=== PATIENT | female | born 1995 | race Caucasian/White ===

== ENCOUNTER → 2017-06-25 | Outpatient (REF) | payer BC ==
[2017-06-25 12:05] LABS: BASO # 0.1 K/mm3 (0.0-0.2); BASO % 0.8 % (0.0-1.0); EOS # 0.2 K/mm3 (0.0-0.50); EOS % 1.9 % (0.0-3.0); LARGE UNSTAINED CELL # 0.2 K/mm3 (0.0-0.4); LARGE UNSTAINED CELL % 2.1 % (0.0-4.0); LYMPH # 2.4 K/mm3 (1.5-6.5); LYMPH % 28.9 % (24.0-44.0); MEAN CORPUSCULAR HEMOGLOBIN 30.5 pg (27.0-33.0); MEAN CORPUSCULAR VOLUME 92.7 fl (80.0-96.0); MONO # 0.6 K/mm3 (0.0-0.8); MONO % 7.4 % (0.0-5.0); NEUTROPHILS # 4.5 K/mm3 (1.8-7.7); NEUTROPHILS % 58.9 % (36.0-66.0); PLATELET COUNT, AUTOMATED 352 k/mm3 (150-450); WHITE BLOOD COUNT 7.6 K/mm3 (4.0-10.0)
[2017-06-25 12:26] LABS: ALBUMIN 3.7 GM/DL (3.2-5.2); ALBUMIN/GLOBULIN RATIO 1.19 (1.00-1.93); ALKALINE PHOSPHATASE 60 U/L (45-117); ALT/SGPT 17 U/L (12-78); ANION GAP 10 MEQ/L (8-16); AST/SGOT 13 U/L (15-37); BILIRUBIN,TOTAL 0.4 MG/DL (0.2-1.0); BLOOD UREA NITROGEN 8 MG/DL (7-18); CALCIUM LEVEL 8.6 MG/DL (8.5-10.1); CARBON DIOXIDE LEVEL 27 MEQ/L (21-32); CHLORIDE LEVEL 105 MEQ/L (98-107); CREATININE FOR GFR 0.72 MG/DL (0.55-1.02); FREE T4 1.07 NG/DL (0.76-1.46); GLOMERULAR FILTRATION RATE > 60.0 (>60); GLUCOSE, FASTING 90 MG/DL (70-105); POTASSIUM SERUM 3.9 MEQ/L (3.5-5.1); SODIUM LEVEL 142 MEQ/L (136-145); TOTAL PROTEIN 6.8 GM/DL (6.4-8.2)
== END ==
LOC: M SFHCPLAZ 09:00
PROVIDERS: ATTEND Nurse Practitioner Family
DX: F32.1 Major depressive disorder, single episode, moderate (principal)

== ENCOUNTER → 2018-03-15 | Outpatient (REF) | payer BC, OTHER, MEDICAID | LOC: M LAB REF 18:27 | DX: Z12.4 Encounter for screening for malignant neoplasm of cervix (principal) | CPT/HCPCS: G0123 ==

== ENCOUNTER → 2019-07-18 | Outpatient (CLI) | payer OTHER, MEDICAID ==
[2019-07-18 13:50] LABS: ALBUMIN 3.8 GM/DL (3.2-5.2); ALT/SGPT 20 U/L (12-78); BILIRUBIN,TOTAL 0.3 MG/DL (0.2-1.0); BLOOD UREA NITROGEN 10 MG/DL (7-18); CALCIUM LEVEL 8.9 MG/DL (8.5-10.1); CARBON DIOXIDE LEVEL 27 MEQ/L (21-32); CHLORIDE LEVEL 109 MEQ/L (98-107); CHOLESTEROL LEVEL 164 MG/DL (<200); CHOLESTEROL RISK RATIO 3.565 (<5); CREATININE FOR GFR 0.73 MG/DL (0.55-1.30); GLOMERULAR FILTRATION RATE > 60.0 (>60); GLUCOSE, FASTING 88 MG/DL (70-100); HDL CHOLESTEROL 46 MG/DL (>40); LDL CHOLESTEROL 103 MG/DL (<100); NON-HDL-C 118 MG/DL; POTASSIUM SERUM 4.2 MEQ/L (3.5-5.1); SODIUM LEVEL 144 MEQ/L (136-145); TOTAL PROTEIN 7.2 GM/DL (6.4-8.2); TRIGLYCERIDES LEVEL 77 MG/DL (<150)
== END ==
LOC: M SMT 08:38
PROVIDERS: ATTEND Nurse Practitioner Family
DX: Z00.00 Encounter for general adult medical examination without abnormal findings (principal); Z13.220 Encounter for screening for lipoid disorders; E66.9 Obesity, unspecified; Z68.37 Body mass index [BMI] 37.0-37.9, adult; E03.9 Hypothyroidism, unspecified

== ENCOUNTER → 2020-04-02 | Outpatient (REF) | payer OTHER, MEDICAID | LOC: M SFHCWAGY 17:41 | PROVIDERS: ATTEND Advanced Practice Midwife | DX: Z12.4 Encounter for screening for malignant neoplasm of cervix (principal) ==

== ENCOUNTER → 2022-01-26 | Outpatient (CLI) | payer BC ==
[2022-01-26 15:47] LABS: BASO % 0.3 % (0.0-1.0); EOS # 0.2 10^3/uL (0.0-0.5); EOS % 2.3 % (0.0-3.0); HEMATOCRIT 40.7 % (36.0-47.0); HEMOGLOBIN 13.4 g/dl (12.0-15.5); LYMPH # 1.9 10^3/uL (1.5-5.0); LYMPH % 24.2 % (24.0-44.0); MEAN CORPUSCULAR HEMOGLOBIN 29.1 pg (27.0-33.0); MEAN CORPUSCULAR HGB CONC 32.9 g/dl (32.0-36.5); MEAN CORPUSCULAR VOLUME 88.5 fl (80.0-96.0); MONO # 0.9 10^3/uL (0.0-0.8); MONO % 10.8 % (2.0-8.0); NEUTROPHILS % 62.1 % (36.0-66.0); PLATELET COUNT, AUTOMATED 332 10^3/uL (150-450)
[2022-01-26 16:48] LABS: GC DNA AMPLIFICATION NEGATIVE (NEGATIVE)
[2022-01-26 17:50] LABS: HIV 1&2 SCREEN CENTAUR NEGATIVE (NEGATIVE)
== END ==
LOC: M PLALAB 14:09
PROVIDERS: ATTEND Obstetrics & Gynecology
DX: Z34.90 Encounter for supervision of normal pregnancy, unspecified, unspecified trimester (principal)

== ENCOUNTER → 2022-02-08 | Outpatient (CLI) | payer BC | LOC: M PLALAB 09:06 | PROVIDERS: ATTEND Obstetrics & Gynecology | DX: Z34.81 Encounter for supervision of other normal pregnancy, first trimester (principal) ==

== ENCOUNTER → 2022-04-14 | Outpatient (CLI) | payer BC | LOC: M WHC 07:04 | PROVIDERS: ATTEND Obstetrics & Gynecology | DX: Z34.01 Encounter for supervision of normal first pregnancy, first trimester (principal) ==

== ENCOUNTER → 2022-05-03 | Outpatient (CLI) | payer BC, MEDICAID | LOC: M WHC 13:08 | PROVIDERS: ATTEND Obstetrics & Gynecology | DX: O44.42 Low lying placenta NOS or without hemorrhage, second trimester (principal); Z3A.23 23 weeks gestation of pregnancy ==

== ENCOUNTER → 2022-06-08 | Outpatient (CLI) | payer BC, MEDICAID ==
[2022-06-08 10:48] LABS: HEMATOCRIT 35.9 % (36.0-47.0); HEMOGLOBIN 11.7 g/dl (12.0-15.5); MEAN CORPUSCULAR HEMOGLOBIN 29.1 pg (27.0-33.0); MEAN CORPUSCULAR HGB CONC 32.6 g/dl (32.0-36.5); MEAN CORPUSCULAR VOLUME 89.3 fl (80.0-96.0); PLATELET COUNT, AUTOMATED 297 10^3/uL (150-450); RED BLOOD COUNT 4.02 10^6/uL (4.00-5.40); WHITE BLOOD COUNT 10.8 10^3/uL (4.0-10.0)
[2022-06-08 12:35] LABS: GC DNA AMPLIFICATION NEGATIVE (NEGATIVE)
== END ==
LOC: M PLALAB 07:18
PROVIDERS: ATTEND Specialist
DX: Z34.82 Encounter for supervision of other normal pregnancy, second trimester (principal)

== ENCOUNTER → 2022-07-25 | Outpatient (REF) | payer BC, MEDICAID ==
[~2022-07-25] MED LIST: ACET-907 PO; PRENTAB9 PO; TUMS500C PO
== END ==
LOC: M SFHCWAGY 09:56
PROVIDERS: ATTEND Advanced Practice Midwife
DX: Z34.03 Encounter for supervision of normal first pregnancy, third trimester (principal)

== ENCOUNTER 2022-08-01 15:32 | Outpatient (CLI) | payer OTHER, MEDICAID ==
[~2022-08-01] VITALS: Ht 154.9 cm; Wt 104.4 kg
[2022-08-01 15:58] VITALS: BP 128/82
[2022-08-01] MEDS ORDERED: ACET-907 PO (16:10)
[2022-08-01] MEDS ORDERED: TUMS500C PO (16:10)
[2022-08-01] MEDS ORDERED: PRENTAB9 PO (16:10)
[2022-08-01 16:16] VITALS: BP 118/71
[2022-08-01 17:01] LABS: HEMATOCRIT 32.4 % (36.0-47.0); HEMOGLOBIN 10.5 g/dl (12.0-15.5); MEAN CORPUSCULAR HEMOGLOBIN 27.9 pg (27.0-33.0); MEAN CORPUSCULAR HGB CONC 32.4 g/dl (32.0-36.5); MEAN CORPUSCULAR VOLUME 85.9 fl (80.0-96.0); PLATELET COUNT, AUTOMATED 250 10^3/uL (150-450); RED BLOOD COUNT 3.77 10^6/uL (4.00-5.40); WHITE BLOOD COUNT 9.1 10^3/uL (4.0-10.0)
[2022-08-01 17:29] LABS: CREATININE,RANDOM URINE 20.7 MG/DL
[2022-08-01 17:34] LABS: ALT/SGPT 16 U/L (12-78); BILIRUBIN,TOTAL 0.2 MG/DL (0.2-1.0); CREATININE FOR GFR 0.54 MG/DL (0.55-1.30); GLOMERULAR FILTRATION RATE > 60.0 (>60); LDH LACTATE DEHYDROGENASE 166 U/L (84-246)
[2022-08-01 18:01] VITALS: BP 159/94
== END 2022-08-01 18:20 | disposition home or self-care (01) ==
LOC: M LDO 15:32
PROVIDERS: ATTEND Specialist
DX: O16.3 Unspecified maternal hypertension, third trimester (principal); Z3A.36 36 weeks gestation of pregnancy
CPT/HCPCS: 36415; 59025; 82247; 82565; 82570; 83615; 84156; 84450; 84460; 84550; 85027; G0463

== ENCOUNTER → 2022-08-04 | Outpatient (CLI) | payer OTHER, MEDICAID ==
[~2022-08-04] MED LIST changes: +ALBU2.5V10 INH
== END ==
LOC: M WHC 12:01
PROVIDERS: ATTEND Advanced Practice Midwife
DX: O26.849 Uterine size-date discrepancy, unspecified trimester (principal)

== ENCOUNTER 2022-08-05 19:50 | Inpatient (IN) | payer OTHER, MEDICAID ==
[2022-08-05] VITALS (7 sets, daily range): BP systolic 124–167; BP diastolic 71–103
[~2022-08-05] VITALS: Ht 154.9 cm; Wt 104.4 kg
[~2022-08-05 19:50] MED LIST changes: -ALBU2.5V10 INH
[2022-08-05 20:57] LABS: HEMATOCRIT 33.7 % (36.0-47.0); HEMOGLOBIN 11.2 g/dl (12.0-15.5); MEAN CORPUSCULAR HEMOGLOBIN 27.7 pg (27.0-33.0); MEAN CORPUSCULAR HGB CONC 33.2 g/dl (32.0-36.5); MEAN CORPUSCULAR VOLUME 83.4 fl (80.0-96.0); PLATELET COUNT, AUTOMATED 280 10^3/uL (150-450); RED BLOOD COUNT 4.04 10^6/uL (4.00-5.40); WHITE BLOOD COUNT 8.8 10^3/uL (4.0-10.0)
[2022-08-05] MEDS ORDERED: NIFEdipine 10 MG CAP As Ordered ONE (21:14)
[2022-08-05] MEDS ORDERED: NIFEdipine 10 MG CAP PO ONE ×2 (22:00→23:00)
[2022-08-05] MEDS: miSOPROStol 50MCG 1/2 TABLET SL SCH (23:04)
[2022-08-06] VITALS (29 sets, daily range): BP systolic 118–190; BP diastolic 66–117
[2022-08-06] MEDS ORDERED: ACETAMINOPHEN 500 MG TAB PO PRN (01:30)
[2022-08-06] MEDS: miSOPROStol 50MCG 1/2 TABLET SL SCH ×5 (03:00→16:35)
[2022-08-06] MEDS ORDERED: ALBU2.5V10 INH (09:57)
[2022-08-06] MEDS ORDERED: OXYTOCIN DRIP 30 UNITS in IV 1 EA IV SCH ×2 (17:30→22:30)
[2022-08-06] MEDS ORDERED: LR 1,000 ML IV SCH ×3 (17:30→22:45)
[2022-08-06] MEDS ORDERED: NIFEdipine 10 MG CAP PO ONE ×2 (17:40→20:00)
[2022-08-06] MEDS ORDERED: ceFAZolin 2 GM/D5W 50 ML IV BAG (J0690 PER 500MG) As Ordered ONE (20:58)
[2022-08-06] MEDS ORDERED: BICITRA 30ML SOLN UDC As Ordered ONE (20:58)
[2022-08-06] MEDS ORDERED: BUPIVACAINE/DEXTROSE 0.75% 2ML AMP As Ordered ONE (21:11)
[2022-08-06] MEDS ORDERED: MORPHINE PRES-FREE INJ 10 MG/10 ML VIAL As Ordered ONE (21:11)
[2022-08-06] MEDS ORDERED: OXYTOCIN 30 UNITS IN 0.9% NaCl 500ML IV BAG (J2590) As Ordered ONE ×2 (21:13→23:10)
[2022-08-06 21:22] LABS: HEMATOCRIT 34.6 % (36.0-47.0); HEMOGLOBIN 11.6 g/dl (12.0-15.5); MEAN CORPUSCULAR HGB CONC 33.5 g/dl (32.0-36.5); MEAN CORPUSCULAR VOLUME 83.6 fl (80.0-96.0); PLATELET COUNT, AUTOMATED 294 10^3/uL (150-450); RED BLOOD COUNT 4.14 10^6/uL (4.00-5.40); WHITE BLOOD COUNT 12.3 10^3/uL (4.0-10.0)
[2022-08-06] MEDS ORDERED: ceFAZolin SOD 2 GM in IV 1 EA IV ONE (22:00)
[2022-08-06] MEDS ORDERED: BICITRA 30ML SOLN UDC PO ONE (22:00)
[2022-08-06] MEDS ORDERED: PHENYLephrine 500MCG 5ML (100MCG/ML) SYRINGE As Ordered ONE (22:15)
[2022-08-06] MEDS ORDERED: KETOROLAC 60MG 2ML VIAL As Ordered ONE (22:15)
[2022-08-06] MEDS ORDERED: PERCOCET 5MG/325MG TAB PO PRN ×2 (22:30)
[2022-08-06] MEDS ORDERED: RHOGAM 300 MCG (1500 IU) INJ (J2790) IM SCH (22:30)
[2022-08-06] MEDS ORDERED: MAG Sulf (L&D) 4 GM/100 ML 4 GM in IV 1 EA IV ONE (22:35)
[2022-08-06] MEDS ORDERED: ONDANSETRON 4MG 2ML VIAL As Ordered ONE (22:38)
[2022-08-06] MEDS: ONDANSETRON 4MG 2ML VIAL IV PRN (22:39)
[2022-08-06] MEDS ORDERED: **NOTE PATIENT COMMENT** MISC XX SCH (22:45)
[2022-08-06] MEDS ORDERED: ONDANSETRON 4MG 2ML VIAL IV PRN (22:45)
[2022-08-06] MEDS ORDERED: fentaNYL 100 MCG/2 ML INJECTION IV PRN (22:45)
[2022-08-06] MEDS ORDERED: diphenhydrAMINE 50MG/ML VIAL (J1200) IV PRN (22:45)
[2022-08-06] MEDS ORDERED: NALOXONE INJ 0.4MG/1ML VIAL (J2310 PER 1MG) IV PRN ×2 (22:45)
[2022-08-06] MEDS ORDERED: MORPHINE 2 MG/ML 1ML VIAL IV PRN (22:45)
[2022-08-06] MEDS ORDERED: MAG Sulf (OBGYN) 20GM/500ML 20,000 MG in IV 1 EA IV SCH (23:00)
[2022-08-06] MEDS ORDERED: METOCLOPRAMIDE INJ 10MG/2ML VIAL (J2765 PER 1) As Ordered ONE (23:31)
[2022-08-06] MEDS: METOCLOPRAMIDE INJ 10MG/2ML VIAL (J2765 PER 1) IV PRN (23:32)
[2022-08-06] MEDS ORDERED: MAGNESIUM SULFATE 4% INJ 20GM/500ML (40MG/ML) As Ordered ONE (23:39)
[2022-08-07] VITALS (14 sets, daily range): BP systolic 104–132; BP diastolic 62–91
[2022-08-07] MEDS: KETOROLAC 30 MG/ML 1ML VIAL IV SCH ×3 (04:24→17:19)
[2022-08-07 06:23] LABS: HEMOGLOBIN 10.1 g/dl (12.0-15.5); MEAN CORPUSCULAR HEMOGLOBIN 27.7 pg (27.0-33.0); MEAN CORPUSCULAR HGB CONC 32.6 g/dl (32.0-36.5); MEAN CORPUSCULAR VOLUME 85.2 fl (80.0-96.0); PLATELET COUNT, AUTOMATED 258 10^3/uL (150-450); RED BLOOD COUNT 3.64 10^6/uL (4.00-5.40); WHITE BLOOD COUNT 14.9 10^3/uL (4.0-10.0)
[2022-08-07] MEDS: SLF 3 ML SYR IV SCH ×2 (08:00)
[2022-08-07] MEDS: METOCLOPRAMIDE INJ 10MG/2ML VIAL (J2765 PER 1) IV PRN (08:24)
[2022-08-07] MEDS: ONDANSETRON 4MG 2ML VIAL IV PRN (08:24)
[2022-08-07] MEDS: PRENATAL VITAMINS CHEWABLE TABLET PO SCH (09:00)
[2022-08-07] MEDS: SIMETHICONE 80MG CHEW TAB PO PRN (21:28)
[2022-08-07] MEDS: DOCUSATE SODIUM 100MG CAPSULE PO PRN (21:28)
[2022-08-07] MEDS: IBUPROFEN 800 MG TAB PO SCH (23:42)
[2022-08-08 01:57] VITALS: BP 116/75
[2022-08-08 06:00] VITALS: BP 112/78
[2022-08-08] MEDS ORDERED: MEASLES,MUMPS,RUBELLA VACCINE INJ (MMR-II) (90707) SC.IMMUN ONE (09:00)
[2022-08-08] MEDS: IBUPROFEN 800 MG TAB PO SCH (09:03)
[2022-08-08] MEDS: PRENATAL VITAMINS CHEWABLE TABLET PO SCH (09:05)
[2022-08-08] MEDS: DOCUSATE SODIUM 100MG CAPSULE PO PRN (09:05)
[2022-08-08 10:00] VITALS: BP 136/97
[2022-08-08 14:00] VITALS: BP 124/83
[2022-08-08] MEDS: SIMETHICONE 80MG CHEW TAB PO PRN ×2 (14:39→21:55)
[2022-08-08] MEDS ORDERED: oxyCODONE 5MG TAB PO PRN (14:50)
[2022-08-08] MEDS: ACETAMINOPHEN TAB 650MG DOSE (2X325MG) PO PRN (17:19)
[2022-08-08] MEDS: IBUPROFEN 600MG TAB PO SCH ×2 (17:19→21:55)
[2022-08-08 18:00] VITALS: BP 140/87
[2022-08-09] MEDS: ACETAMINOPHEN TAB 650MG DOSE (2X325MG) PO PRN ×3 (00:04→11:38)
[2022-08-09] MEDS: IBUPROFEN 600MG TAB PO SCH ×2 (03:03→09:38)
[2022-08-09] MEDS: PRENATAL VITAMINS CHEWABLE TABLET PO SCH (09:37)
[2022-08-09 15:15] VITALS: BP 121/71
[2022-08-09] MEDS ORDERED: ACET1TAB55 PO (18:42)
[2022-08-09] MEDS ORDERED: COLA100C5 PO (18:42)
[2022-08-09] MEDS ORDERED: IBUP-1022 PO (18:42)
[2022-08-09] MEDS ORDERED: OXYC-517 PO (18:42)
== END 2022-08-09 19:35 | disposition home or self-care (01) | DRG 540 ==
LOC: M LDI 19:50 → M OBS 08-07 14:26
PROVIDERS: ADMIT Specialist; ATTEND Specialist
PROC: 3E0P7GC Introduction of Other Therapeutic Substance into Female Reproductive, Via Natural or Artificial Opening (ICD-10-PCS; 2022-08-05)
PROC: 10D00Z1 Extraction of Products of Conception, Low, Open Approach (ICD-10-PCS; principal; 2022-08-06 21:23)
DX: O14.94 Unspecified pre-eclampsia, complicating childbirth (principal); O99.214 Obesity complicating childbirth; E66.9 Obesity, unspecified; O62.0 Primary inadequate contractions; Z37.0 Single live birth; Z3A.37 37 weeks gestation of pregnancy